=== PATIENT | female | born 1950 | race Caucasian/White ===

== ENCOUNTER 2017-10-01 07:20 | Day surgery (SDC) | payer MEDICARE, OTHER ==
[~2017-10-01] VITALS: Ht 162.6 cm; Wt 93.9 kg
[~2017-10-01 07:20] MED LIST: AMBIEN5 MG PO; CELEBREX100 MG PO; DONEPEZIL HCL10 MG PO; FLUOXETINE HCL10 M1 PO; GABAPENTIN300 MG PO; LIPITOR10 MG PO; LISINOPRIL5 MG PO; METOPROLOL TART25 MG PO; QUETIAPINE FUM100 MG PO
== END 2017-10-01 08:48 | disposition home or self-care (01) ==
LOC: DS 07:20 → OPS 07:20 → DS 08:15 → OPS 08:15
PROVIDERS: Ophthalmology
PROC: 08RJ3JZ Replacement of Right Lens with Synthetic Substitute, Percutaneous Approach (ICD-10-PCS; principal; 2017-10-01 08:15)
DX: H25.13 Age-related nuclear cataract, bilateral (principal); E78.00 Pure hypercholesterolemia, unspecified; I10 Essential (primary) hypertension; M19.90 Unspecified osteoarthritis, unspecified site; M54.9 Dorsalgia, unspecified; F32.9 Major depressive disorder, single episode, unspecified; Z88.2 Allergy status to sulfonamides; Z79.899 Other long term (current) drug therapy
CPT/HCPCS: J2250

== ENCOUNTER 2017-10-15 08:55 | Day surgery (SDC) | payer MEDICARE, OTHER ==
[~2017-10-15] VITALS: Ht 162.6 cm; Wt 93.9 kg
== END 2017-10-15 11:37 | disposition home or self-care (01) ==
LOC: OPS 08:55 → DS 08:55 → OPS 10:00 → DS 10:00 → OPS 11:37
PROVIDERS: Ophthalmology
PROC: 08RK3JZ Replacement of Left Lens with Synthetic Substitute, Percutaneous Approach (ICD-10-PCS; principal; 2017-10-15 10:00)
DX: H25.812 Combined forms of age-related cataract, left eye (principal); I10 Essential (primary) hypertension; Z79.1 Long term (current) use of non-steroidal anti-inflammatories (NSAID); Z79.899 Other long term (current) drug therapy
CPT/HCPCS: J2250